=== PATIENT | male | born 1995 | race Caucasian/White ===

== ENCOUNTER 2019-01-06 23:28 | Emergency (ER) | payer SELFPAY ==
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
== END 2019-01-06 23:40 | disposition left against medical advice (07) ==
LOC: SED 23:28
DX: F10.10 Alcohol abuse, uncomplicated (principal); Z53.21 Procedure and treatment not carried out due to patient leaving prior to being seen by health care provider